=== PATIENT | female | born 1955 | race African-American/Black ===

== ENCOUNTER 2021-03-23 09:54 | Observation (INO) | payer MEDICARE, MEDICAID ==
[2021-03-23] MEDS ORDERED: Aspirin Chewable 81 MG TAB ONE (10:27)
[2021-03-23] MEDS ORDERED: Nitroglycerin 2% Ointment 1 INCH/1 GM Packet ONE (10:27)
[2021-03-23 11:04] LABS: #Eosinphils 0.1 thou/uL (0.0-0.7); #Lymphocytes 2.1 thou/uL (1.20-3.40); #Monocytes 0.9 thou/uL (0.11-0.59); #Neutrophils 3.9 thou/uL (1.40-6.50); %Basophils 0.7 % (0.0-1.0); %Eosinophils 1.6 % (0.0-10.0); %Lymphocytes 30.3 % (21.0-51.0); %Monocytes 12.1 % (0.0-10.0); %Neutrophils 55.2 % (42.0-75.0); Hemoglobin 11.6 g/dL (12.0-16.0); Mean Corpuscular HGB CONC 33.2 g/dL (32.0-36.0); Mean Corpuscular Hemoglobin 30.8 pg (27.0-31.0); Mean Corpuscular Volume 92.9 fL (78.0-98.0); Mean Platelet Volume 8.4 fL (7.4-10.4); Platelet Count 201 thou/uL (130-400); Red Blood Cell (RBC) Count 3.77 mill/uL (4.20-5.40)
[2021-03-23] MEDS ORDERED: Nitroglycerin 0.4 MG TAB 1 EACH ONE (11:28)
[2021-03-23 11:42] LABS: ALT (SGPT) 27 U/L (8-55); AST (SGOT) 47 U/L (5-34); Alkaline Phosphatase 63 U/L (40-110); Anion Gap 17 mmol/L (10-20); BUN (Urea Nitrogen) 17 mg/dL (9.8-20.1); Bilirubin, Total 0.7 mg/dL (0.2-1.2); Calc. Creatinine Clearance 0 mL/min (70-130); Calcium 9.9 mg/dL (7.8-10.44); Carbon Dioxide 23 mmol/L (23-31); Chloride 104 mmol/L (98-107); Globulin 3.5 g/dL (2.4-3.5); Glucose 86 mg/dL (80-115); Potassium 4.3 mmol/L (3.5-5.1); Protein, Total 7.5 g/dL (5.8-8.1); Sodium 140 mmol/L (136-145)
[2021-03-23] MEDS ORDERED: hydrALAZINE 20 MG/ML VIAL ONE (11:48)
[2021-03-23] MEDS ORDERED: Dextrose 5% in Water 1,000 ML IV PRN (13:10)
[2021-03-23] MEDS ORDERED: Acetaminophen 325 MG TAB PO PRN (13:10)
[2021-03-23] MEDS ORDERED: Ondansetron PF 4 MG/2 ML Vial IVP PRN (13:10)
[2021-03-23] MEDS ORDERED: Dextrose 50% Abboject 50 ML SYRINGE SLOW IVP PRN (13:10)
[2021-03-23] MEDS ORDERED: HumaLOG 300 UNITS/3 ML VIAL SC PRN ×2 (13:10)
[2021-03-23] MEDS ORDERED: Amlodipine 5 MG TAB PO SCH (13:30)
[2021-03-23] MEDS ORDERED: Metoprolol Tartrate 25 MG TAB PO SCH (13:30)
[2021-03-23 14:22] LABS: Troponin I Less than 0.010 ng/mL (< 0.028)
[2021-03-23] MEDS ORDERED: Metoprolol Tartrate 25 MG TAB ONE (14:47)
[2021-03-23] MEDS ORDERED: Amlodipine 5 MG TAB ONE (14:47)
[2021-03-23 14:48] LABS: SARS-CoV-2 NAA Rapid Test Not Detected (NotDetected)
[2021-03-23] MEDS: Nitroglycerin 2% Ointment 1 INCH/1 GM Packet TOP SCH ×2 (14:54→22:25)
[2021-03-23 16:34] VITALS: BMI 21.5
[2021-03-23 16:45] LABS: Troponin I Less than 0.010 ng/mL (< 0.028)
[2021-03-23] MEDS: hydrALAZINE 20 MG/ML VIAL SLOW IVP PRN (19:18)
[2021-03-23] MEDS: Metoprolol Tartrate 25 MG TAB PO SCH (20:44)
[2021-03-23] MEDS: Losartan 25 MG TAB PO SCH (20:44)
[2021-03-23] MEDS: levETIRAcetam 500 MG TAB PO SCH (20:45)
[2021-03-23] MEDS ORDERED: Atorvastatin Calcium 40 MG TAB PO SCH (21:00)
[2021-03-24 04:47] LABS: #Eosinphils 0.1 thou/uL (0.0-0.7); #Lymphocytes 1.6 thou/uL (1.20-3.40); #Monocytes 0.8 thou/uL (0.11-0.59); #Neutrophils 4.1 thou/uL (1.40-6.50); %Basophils 0.5 % (0.0-1.0); %Eosinophils 1.5 % (0.0-10.0); %Lymphocytes 23.9 % (21.0-51.0); %Monocytes 11.6 % (0.0-10.0); %Neutrophils 62.5 % (42.0-75.0); Hemoglobin 10.6 g/dL (12.0-16.0); Mean Corpuscular HGB CONC 33.4 g/dL (32.0-36.0); Mean Corpuscular Hemoglobin 30.9 pg (27.0-31.0); Mean Corpuscular Volume 92.5 fL (78.0-98.0); Mean Platelet Volume 8.5 fL (7.4-10.4); Platelet Count 212 thou/uL (130-400); RBC Distribution Width 12.1 % (11.5-14.5); Red Blood Cell (RBC) Count 3.45 mill/uL (4.20-5.40); White Blood Cell (WBC) Count 6.6 thou/uL (4.8-10.8)
[2021-03-24 05:16] LABS: Anion Gap 11 mmol/L (10-20); BUN (Urea Nitrogen) 14 mg/dL (9.8-20.1); Calc. Creatinine Clearance 61 mL/min (70-130); Calcium 9.4 mg/dL (7.8-10.44); Carbon Dioxide 29 mmol/L (23-31); Cardiac Risk 1.7 (Less than 4.5); Chloride 105 mmol/L (98-107); Cholesterol 185 mg/dl (< 200 Desired); Glucose 93 mg/dL (80-115); HDL Cholesterol 109 mg/dL (>60 Neg Risk); LDL Cholesterol, Calculated 66 mg/dL; Potassium 3.6 mmol/L (3.5-5.1); Sodium 141 mmol/L (136-145); Triglycerides 49 mg/dL (Less than 150)
[2021-03-24] MEDS: Nitroglycerin 2% Ointment 1 INCH/1 GM Packet TOP SCH ×2 (06:13→15:32)
[2021-03-24] MEDS: levETIRAcetam 500 MG TAB PO SCH (07:47)
[2021-03-24] MEDS ORDERED: Aspirin Chewable 81 MG TAB PO SCH (09:00)
[2021-03-24] MEDS ORDERED: Amlodipine 5 MG TAB PO SCH (09:00)
[2021-03-24] MEDS ORDERED: Regadenoson 0.4 MG/5 ML SYRINGE ONE (09:43)
[2021-03-24] MEDS: Losartan 25 MG TAB PO SCH (13:04)
[2021-03-24] MEDS: Metoprolol Tartrate 25 MG TAB PO SCH (13:05)
[2021-03-24 15:28] VITALS: TEMP 97.3
[2021-03-24] MEDS: hydrALAZINE 20 MG/ML VIAL SLOW IVP PRN (15:32)
[2021-03-24 16:30] VITALS: BP 143/75
[2021-03-24] MEDS ORDERED: Carvedilol 6.25 MG TAB PO SCH (17:00)
[2021-03-25] MEDS ORDERED: Losartan 25 MG TAB PO SCH (09:00)
== END 2021-03-24 18:35 | disposition home or self-care (01) ==
LOC: ERS 09:54 → ERHOLD 12:33 → 2NO 16:25
PROVIDERS: ADMIT Family Medicine; ATTEND Hospitalist
DX: R07.89 Other chest pain (principal); I16.1 Hypertensive emergency; I16.0 Hypertensive urgency; I08.1 Rheumatic disorders of both mitral and tricuspid valves; I25.10 Atherosclerotic heart disease of native coronary artery without angina pectoris; I10 Essential (primary) hypertension; E78.5 Hyperlipidemia, unspecified; E11.9 Type 2 diabetes mellitus without complications; G40.909 Epilepsy, unspecified, not intractable, without status epilepticus; D64.9 Anemia, unspecified; Z95.5 Presence of coronary angioplasty implant and graft; Z20.822 Contact with and (suspected) exposure to COVID-19; Z79.82 Long term (current) use of aspirin; Z79.899 Other long term (current) drug therapy; Z89.421 Acquired absence of other right toe(s); Z79.890 Hormone replacement therapy; Z89.411 Acquired absence of right great toe
CPT/HCPCS: 0240U; 71045; 78452; 80048; 80053; 80061; 82962 ×2; 83880; 84484 ×2; 85025 ×2; 93005; 93017; 93306; 96374; 99285; A9500; 36415; 36416; 96376; G0378; J0360; J2785

== ENCOUNTER 2021-05-06 03:20 | Emergency (ER) | payer MEDICARE, MEDICAID | END 2021-05-06 04:22 | disposition home or self-care (01) | LOC: ERS 03:20 | DX: G62.9 Polyneuropathy, unspecified (principal); I25.10 Atherosclerotic heart disease of native coronary artery without angina pectoris; E11.9 Type 2 diabetes mellitus without complications; I10 Essential (primary) hypertension; E78.00 Pure hypercholesterolemia, unspecified; Z79.82 Long term (current) use of aspirin; Z79.899 Other long term (current) drug therapy ==

== ENCOUNTER 2021-08-10 03:48 | Emergency (ER) | payer MEDICARE, MEDICAID ==
[2021-08-10] MEDS ORDERED: Acetaminophen 500 MG TAB ONE (05:48)
[2021-08-10] MEDS ORDERED: Lidocaine Viscous Sol 2% 15 ml UD Cup ONE (05:48)
== END 2021-08-10 06:01 | disposition home or self-care (01) ==
LOC: ERS 03:48
DX: J02.9 Acute pharyngitis, unspecified (principal); I10 Essential (primary) hypertension; E11.9 Type 2 diabetes mellitus without complications; I25.10 Atherosclerotic heart disease of native coronary artery without angina pectoris; E78.00 Pure hypercholesterolemia, unspecified; Z79.82 Long term (current) use of aspirin; Z79.899 Other long term (current) drug therapy
CPT/HCPCS: 93005

== ENCOUNTER 2022-04-24 12:17 | Emergency (ER) | payer OTHER, MEDICAID ==
[2022-04-24 13:40] LABS: #Eosinphils 0.1 thou/uL (0.0-0.7); #Lymphocytes 1.7 thou/uL (1.20-3.40); #Monocytes 0.6 thou/uL (0.11-0.59); #Neutrophils 3.5 thou/uL (1.40-6.50); %Basophils 0.6 % (0.0-1.0); %Eosinophils 1.1 % (0.0-10.0); %Lymphocytes 28.8 % (21.0-51.0); %Monocytes 10.4 % (0.0-10.0); Hemoglobin 11.9 g/dL (12.0-16.0); Mean Corpuscular HGB CONC 33.9 g/dL (32.0-36.0); Mean Corpuscular Hemoglobin 31.8 pg (27.0-31.0); Mean Corpuscular Volume 93.8 fL (78.0-98.0); Platelet Count 192 thou/uL (130-400); RBC Distribution Width 11.8 % (11.5-14.5); Red Blood Cell (RBC) Count 3.75 mill/uL (4.20-5.40); White Blood Cell (WBC) Count 5.9 thou/uL (4.8-10.8)
[2022-04-24 14:04] LABS: ALT (SGPT) 19 U/L (8-55); AST (SGOT) 30 U/L (5-34); Alkaline Phosphatase 54 U/L (40-110); Anion Gap 15 mmol/L (10-20); BUN (Urea Nitrogen) 18 mg/dL (9.8-20.1); Bilirubin, Total 0.8 mg/dL (0.2-1.2); Calc. Creatinine Clearance 0 mL/min (70-130); Calcium 9.5 mg/dL (7.8-10.44); Carbon Dioxide 23 mmol/L (23-31); Chloride 105 mmol/L (98-107); Estimated GFR 62; Globulin 2.8 g/dL (2.4-3.5); Glucose 78 mg/dL (80-115); Potassium 4.1 mmol/L (3.5-5.1); Protein, Total 6.8 g/dL (5.8-8.1); Sodium 139 mmol/L (136-145)
== END 2022-04-24 16:32 | disposition home or self-care (01) ==
LOC: ERS 12:17
DX: M25.532 Pain in left wrist (principal); I25.10 Atherosclerotic heart disease of native coronary artery without angina pectoris; E11.9 Type 2 diabetes mellitus without complications; I10 Essential (primary) hypertension; E78.00 Pure hypercholesterolemia, unspecified; Z79.4 Long term (current) use of insulin; Z79.899 Other long term (current) drug therapy
CPT/HCPCS: 36415; 71045; 80053; 83880; 84484; 85025; 93005

== ENCOUNTER 2024-03-10 05:34 | Emergency (ER) | payer MEDICAID, OTHER ==
[2024-03-10] MEDS ORDERED: Ibuprofen 200 MG TAB ONE (07:28)
== END 2024-03-10 08:50 | disposition home or self-care (01) ==
LOC: ERS 05:34
DX: S89.91XA Unspecified injury of right lower leg, initial encounter (principal); M25.461 Effusion, right knee; I10 Essential (primary) hypertension; E11.9 Type 2 diabetes mellitus without complications; I25.10 Atherosclerotic heart disease of native coronary artery without angina pectoris; W18.09XA Striking against other object with subsequent fall, initial encounter; Y93.89 Activity, other specified; Z95.5 Presence of coronary angioplasty implant and graft